=== PATIENT | female | born 1950 | race Two or more races ===

== ENCOUNTER 2020-04-03 05:40 | Day surgery (SDC) | payer OTHER ==
[~2020-04-03 05:40] MED LIST: ASPIR 8181 MG PO; IRBESARTAN75 MG PO; SIMVASTATIN10 MG PO; VITAMIN D310 MCG/1 M PO
[2020-04-03] MEDS ORDERED: PERCOCET 5-3251 EACH PO (08:51)
== END 2020-04-03 12:45 | disposition home or self-care (01) ==
LOC: CIR.AMB 05:40 → ADM 09:30 → CIR.AMB 09:45
PROVIDERS: ATTEND Surgery
DX: D35.1 Benign neoplasm of parathyroid gland (principal)

== ENCOUNTER 2020-09-12 10:56 | Emergency (ER) | payer OTHER ==
[~2020-09-12] VITALS: Ht 165.1 cm; Wt 68.9 kg
[~2020-09-12 10:56] MED LIST changes: +PERCOCET 5-3251 EACH PO
== END 2020-09-12 21:04 | disposition home or self-care (01) ==
LOC: ER 10:56
DX: K80.20 Calculus of gallbladder without cholecystitis without obstruction (principal); K56.600 Partial intestinal obstruction, unspecified as to cause; K29.70 Gastritis, unspecified, without bleeding; Z03.818 Encounter for observation for suspected exposure to other biological agents ruled out